=== PATIENT | male | born 1980 | race Caucasian/White ===

== ENCOUNTER 2016-05-19 02:31 | Emergency (ER) | payer OTHER ==
[~2016-05-19] VITALS: Ht 175.3 cm; Wt 90.7 kg
[~2016-05-19 02:31] MED LIST: MOBIC15 M1 PO
[2016-05-19 02:51] VITALS: BP 124/87
--- NOTE | 2016-05-19 02:55 | ED INFLUENZA/URI COMPLAINT ---
History of Present Illness General Chief Complaint: General Adult Stated Complaint: " SORE THROAT EAR/HEAD PAIN" Source: patient Exam Limitations: no limitations Vital Signs & Intake/Output Vital Signs & Intake/Output Vital Signs Date Time Temp Pulse Resp B/P Pulse O2 O2 Flow FiO2 Ox Delivery Rate 05/19 0251 98.7 89 18 124/87 97 Room Air Allergies Coded Allergies: No Known Allergies (05/19/16) Reconcile Medications Amoxicillin/Potassium Clav (Augmentin 875-125 Tablet) 875 MG-125 MG TABLET 1 TAB PO BID EAR INFECTION/PHARYNGITIS Ibuprofen 800 MG TABLET 1 TAB PO TID PRN PAIN Prednisone 50 MG TABLET 1 TAB PO DAILY INFLAMMATION Triage Note: TRIAGE: PATIENT TO ER FROM HOME REPORTING L SIDE HEAD/EAR/THROAT PAIN, REPORTS "THINK I HAD THE FLU EARLIER IN THE WEEK W/ CHILLS AND STUFF." 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 Triage Nurses Notes Reviewed? yes Onset: Gradual Duration: day(s): Timing: recent history Severity: moderate Prior Episodes/Possible Cause: no prior episodes Modifying Factors: Improves With: rest. Associated Symptoms: sore throat and left ear pain HPI: 35-year-old gentleman presents with sore throat and left ear pain for the past 3 or 4 days. He states that last week he, "probably had the flu." He states the flu like symptoms have resolved but that he now has a sore throat and left ear pain. He is able to drink and speak but notes that it is quite painful to do so. He has no fever chills or sputum production. Past History Travel History Traveled to [place] past 21 day No Medical History Any Pertinent Medical History? 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 No Review of Systems Review of Systems Constitutional: Reports: no symptoms. EENTM: Reports: no symptoms. Respiratory: Reports: no symptoms. Cardiovascular: Reports: no symptoms. GI: Reports: no symptoms. Genitourinary: Reports: no symptoms. Musculoskeletal: Reports: no symptoms. Skin: Reports: no symptoms. Neurological/Psychological: Reports: no symptoms. Hematologic/Endocrine: Reports: no symptoms. Immunologic/Allergic: Reports: no symptoms. All Other Systems: Reviewed and Negative Physical Exam Physical Exam General Appearance: well developed/nourished, mild distress Head: atraumatic, normal appearance Eyes: Bilateral: normal appearance. Ears, Nose, Throat: moist mucous membrane, hearing grossly normal, left tympanic membrane with erythema area, oropharynx with significant erythema but without discharge. No signs of exudates or obvious abscess. Neck: normal inspection, supple, full range of motion Respiratory: normal breath sounds, chest non-tender, no respiratory distress Cardiovascular: regular rate/rhythm Gastrointestinal: normal bowel sounds, soft, non-tender, no organomegaly Back: normal inspection, normal range of motion Extremities: normal inspection, normal capillary refill, normal range of motion Neurologic/Psych: no motor/sensory deficits, awake, alert, oriented x 3 Skin: intact, normal color, warm/dry Core Measures Severe Sepsis Present: No Septic Shock Present: No Progress Differential Diagnosis: influenza, otitis, pharyngitis, sinusitis Plan of Care: Gave steroids and states and antibiotics. He has no trouble speaking or swallowing but notes pain when he does so. I referred him to his PMD as well as ear nose and throat for close follow-up, especially if his symptoms do not improve. Initial ED EKG: none Departure Departure Disposition: HOME OR SELF CARE Condition: Stable Clinical Impression Primary Impression: Pharyngitis Secondary Impressions: Left otitis media Referrals: UNKNOWN (PCP/Family) Departure Forms: Customer Survey General Discharge Information Prescriptions: Current Visit Scripts Amoxicillin/Potassium Clav (Augmentin 875-125 Tablet) 1 TAB PO BID #20 TAB Ibuprofen 1 TAB PO TID PRN PAIN #30 TAB Prednisone 1 TAB PO DAILY #2 TAB
[2016-05-19] MEDS ORDERED: IBUPROFEN800 M1 PO (03:15)
[2016-05-19] MEDS ORDERED: AUGMENTIN 875-1 EACH PO (03:15)
[2016-05-19] MEDS ORDERED: PREDNISONE50 M1 PO (03:16)
== END 2016-05-19 03:35 ==
LOC: ERH 02:31
DX: J02.9 Acute pharyngitis, unspecified (principal); H66.92 Otitis media, unspecified, left ear
CPT/HCPCS: J3490